=== PATIENT | male | born 1970 | race Two or more races ===

== ENCOUNTER 2019-03-27 23:38 | Emergency (ER) | payer MEDICAID ==
[~2019-03-27] VITALS: Ht 167.6 cm; Wt 59.0 kg
[2019-03-28] MEDS ORDERED: ACETAMINOPHEN 325 MG TAB PO ONE (00:15)
[2019-03-28 03:39] VITALS: BP 125/77
[2019-03-28] MEDS ORDERED: cefTRIAXone SOD 1,000 MG VL IM ONE (03:45)
[2019-03-28] MEDS ORDERED: DexAMETHasone SOD PHOS 10MG/1ML VIAL INJ IM ONE (03:45)
== END 2019-03-28 05:18 | disposition home or self-care (01) ==
LOC: ER 23:41
DX: R50.9 Fever, unspecified (principal); H66.90 Otitis media, unspecified, unspecified ear; R51 Headache
CPT/HCPCS: 96372; 99283; J0696; J1100